=== PATIENT | female | born 1945 | race Caucasian/White ===

== ENCOUNTER → 2016-09-27 | Outpatient (CLI) | payer OTHER | LOC: HYPER 07:12 | DX: I83.012 Varicose veins of right lower extremity with ulcer of calf (principal); L97.211 Non-pressure chronic ulcer of right calf limited to breakdown of skin; M81.0 Age-related osteoporosis without current pathological fracture; E78.5 Hyperlipidemia, unspecified; Z85.528 Personal history of other malignant neoplasm of kidney; I12.9 Hypertensive chronic kidney disease with stage 1 through stage 4 chronic kidney disease, or unspecified chronic kidney disease; N18.9 Chronic kidney disease, unspecified; M19.90 Unspecified osteoarthritis, unspecified site; I48.91 Unspecified atrial fibrillation; Z87.891 Personal history of nicotine dependence; Z72.89 Other problems related to lifestyle ==

== ENCOUNTER → 2016-10-14 | Outpatient (CLI) | payer OTHER | LOC: HYPER 08:09 | DX: I87.2 Venous insufficiency (chronic) (peripheral) (principal); L97.811 Non-pressure chronic ulcer of other part of right lower leg limited to breakdown of skin; I87.8 Other specified disorders of veins; I86.8 Varicose veins of other specified sites; I83.10 Varicose veins of unspecified lower extremity with inflammation; M19.90 Unspecified osteoarthritis, unspecified site; M81.0 Age-related osteoporosis without current pathological fracture; R60.9 Edema, unspecified; E78.5 Hyperlipidemia, unspecified; I48.91 Unspecified atrial fibrillation; I12.9 Hypertensive chronic kidney disease with stage 1 through stage 4 chronic kidney disease, or unspecified chronic kidney disease; N18.9 Chronic kidney disease, unspecified; Z87.891 Personal history of nicotine dependence; Z72.89 Other problems related to lifestyle; Z85.528 Personal history of other malignant neoplasm of kidney ==

== ENCOUNTER 2017-05-03 14:13 | Inpatient (IN) | payer OTHER ==
[~2017-05-03] VITALS: Ht 160 cm; Wt 98.0 kg
--- NOTE | ~2017-05-03 | CATHLAB ---
[facility] [address] [place] [address] INVASIVE PROCEDURE REPORT Name: ANNA ESPAÑA Room #: 349-I [facility] IN ..#: [id number] Admission: 05/03/17 Attend Phys: Saud Riggins MD Discharge: 05/06/17 Date of : 47 Date of Service: 05/05/17 1253 Report #: [id number] THIS REPORT FOR: //name// CC: Everardo Riggins REASON FOR STUDY: Atrial fibrillation. PROCEDURE: The potential benefits and risks of the procedure were discussed at length with the patient who understood. Full written and informed consent was obtained. She then was sedated with intravenous Versed and fentanyl; 100 biphasic synchronous joules were applied to the chest with prompt conversion of atrial fibrillation to sinus rhythm. She remained in hemodynamically, electrically and neurologically stable condition following the procedure. SUMMARY: Successful cardioversion of atrial fibrillation to sinus rhythm with a single 100 joule biphasic shock. <ELECTRONICALLY SIGNED> By: Neil Connor MD, FACC 05/08/17 0906 1253 0143 Neil Connor MD, FACC /nt
--- NOTE | ~2017-05-03 | TEE ---
[facility] [address] [employer] [place] [address] TRANSESOPHAGEAL ECHOCARDIOGRAM Name: ANNA ESPAÑA Room #: 349-I [facility] IN .R.#: [id number] Admission: 05/03/17 Attend Phys: Saud Riggins MD Discharge: Date of : 47 Date of Service: 05/05/17 0856 Report #: [id number] THIS REPORT FOR: //name// APPROVED REPORT Study performed: 05/05/2017 07:35:20 EXAM: Comprehensive 2D, Doppler, and color-flow Echocardiogram Patient Location: [facility] Room #: 9 Status: routine BSA: 2.00 HR: 90 bpm BP: 111/64 mmHg Other Information Study Quality: Excellent Echo Enhancing Agent Indication: Rule out Shunt Agent(s) / Amount(s) Used: Agitated Saline 7 cc Procedure After obtaining informed consent, patient underwent transesophageal echo in the [employer]. Type of Sedation : Conscious Sedation Sedation was administered by Berenice Collier RN. Sedation start time: 814 Case end Time: 826 Sedation was achieved intravenously with: Versed (3 mg) Fentanyl (50mcg) Transesophageal probe was inserted and advanced into esophagus without difficulty by Neil Connor MD. Echo enhancement indication: R/O Septal defect. Echo enhancement agent administered: Agitated Saline The KRISTINA was performed without complications. Throughout the procedure, the blood pressure, pulse oximetry, cardiac rhythm, and rate were monitored. The patient tolerated the procedure without adverse effects. Recovery from conscious sedation was uneventful and vital signs were stable. Left Ventricle The left ventricle is normal size. Mild to moderate concentric left ventricular hypertrophy. Left ventricular systolic function is low [facility] [address] [place] [address] TRANSESOPHAGEAL ECHOCARDIOGRAM Name: ANNA ESPAÑA Room #: 349-I [facility] IN ..#: [id number] Admission: 05/03/17 Attend Phys: Saud Riggins MD Discharge: Date of : 47 Date of Service: 05/05/17 0856 Report #: [id number] normal. LVEF is 50%. Right Ventricle Right ventricle is dilated. The right ventricular systolic function is normal. Atria Left atrium is dilated. No clots in the left atrium or left atrial appendage. Interatrial septum is intact without evidence of ASD or PFO. Right atrium is dilated. Aortic Valve Aortic valve is mildly calcified, trileaflet. No aortic regurgitation is present. There is no aortic valvular stenosis. Mitral Valve The mitral valve is normal in structure. Moderate mitral regurgitation. No evidence of mitral valve stenosis. Tricuspid Valve The tricuspid valve is normal in structure. Mild tricuspid regurgitation. Pulmonic Valve The pulmonary valve is normal in structure. There is no pulmonic valvular regurgitation. Great Vessels The aortic root is normal in size. Moderate atherosclerosis in aorta. No aneurysm The ascending aorta is normal in size. Pericardium There is no pericardial effusion. <Conclusion> Left ventricular systolic function is low normal. LVEF is 50%. Both atria are dilated. No clots in the left atrium or left atrial appendage. Interatrial septum is intact without evidence of ASD or PFO. Aortic valve is mildly calcified, trileaflet. No aortic regurgitation or stenosis. The mitral valve is normal in structure. Moderate mitral regurgitation. [facility] [place] [address] [place] [address] TRANSESOPHAGEAL ECHOCARDIOGRAM Name: ANNA ESPAÑA Room #: 349-I [facility] IN [facility].#: [id number] Admission: 05/03/17 Attend Phys: Saud Riggins MD Discharge: Date of : 47 Date of Service: 05/05/17855 Report #: [id number] Moderate aortic atherosclerosis. No aneurysm There is no pericardial effusion. <ELECTRONICALLY SIGNED> By: Neil Connor MD, FACC 05/05/17855 5 5 Neil Connor MD, FACC /INF
--- NOTE | ~2017-05-03 | EKG ---
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 : 1945 Requested By: Neil Connor Order Number: [id number] MD: Neil Connor Measurements Intervals [place] Rate: 54 P: 50 ME: 186 QRS: 45 QRSD: 89 T: 50 QT: 455 QTc: 432 Interpretive Statements Sinus bradycardia Otherwise no significant abnormality Compared to ECG 05/03/2017 14:21:49 Atrial fibrillation no longer present Electronically Signed On 05-05-2017 9:08:31 REFORESTATION WORKER by Neil Connor [email or web address] <ELECTRONICALLY SIGNED> By: Neil Connor MD, [facility] 05/05/17 0908 6 Neil Connor MD, [facility] /EPI
--- NOTE | ~2017-05-03 | EKG ---
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
--- NOTE | ~2017-05-03 | HC ---
[facility] [place] [address] CONSULTATION Name: ANNA ESPAÑA Room #: 349-I [facility] IN ..#: [id number] Admission: 05/03/17 Attend Phys: Saud Riggins MD Discharge: 05/06/17 Date of : 47 Report #: [id number] THIS REPORT FOR: //name// CC: Everardo Riggins DATE OF SERVICE: 05/04/2017 WOUND CARE CONSULTATION NOTE REASON FOR CONSULTATION: Pressure ulcers of toes. HISTORY OF PRESENT ILLNESS: The patient is a 71-year-old woman admitted to [facility] for shortness of breath. She does have a history of deep vein thrombosis in the past and a history of renal cell carcinoma, status post left nephrectomy. The patient has been more short of breath over the past few days. Wound care team is consulted as it was noted she had some small areas of pressure injury of her toes. She does have a banking services officer who she sees. Electrocardiogram in the ER showed atrial fibrillation. ALLERGIES: AMOXICILLIN. MEDICATIONS: Include Wellbutrin, Tums, vitamin D, Flexeril, Pradaxa, Cardizem, Neurontin, glucosamine, Claritin, Lopressor, omega-3 fatty acids and vitamin K. PAST MEDICAL HISTORY: History of deep vein thrombosis, hypertension, renal cell carcinoma, osteoarthritis, hammertoe of the right foot, renal cell carcinoma status post left nephrectomy, history of aortic stenosis, peripheral arterial disease and depression. SOCIAL HISTORY: The patient used to smoke. She no longer does. REVIEW OF SYSTEMS: Noncontributory. PHYSICAL EXAMINATION: GENERAL: Shows alert, elderly female, pleasant and conversant. HEENT: Mucous membranes are moist. NECK: Supple. LUNGS: Respirations unlabored. HEART: Rate regular. ABDOMEN: Soft. EXTREMITIES: Exam of her feet shows a hammertoe of the right second toe. She has some slight dry eschar on the right second toe. There are also dry eschars of the left great toe at the distal interphalangeal joint and dry eschars of the distal phalanx of the left second and third toe. At the tip of the toe, there is a dry eschar. There are no open wounds whatsoever. These appeared to be [address] [address] CONSULTATION Name: ANNA ESPAÑA Room #: 349-I [facility] IN [facility].#: [id number] Admission: 05/03/17 Attend Phys: Saud Riggins MD Discharge: 05/06/17 Date of : 47 Report #: [id number] chronic from pressure or rubbing. There are no open wounds. No evidence of cellulitis. This is chronic. IMPRESSION: 1. Shortness of breath. 2. Symptomatic atrial fibrillation. The patient is to undergo cardioversion on 05/05. 3. History of renal cell carcinoma. 4. History of deep vein thrombosis. 5. History of peripheral arterial disease. 6. Hammertoe of the right foot. 7. Minor pressure ulcers with callus of the right second toe, left great toe and second and third toes. PLAN: The patient has a banking services officer who is on staff here at this hospital. Rather making a therapeutic recommendation, we will consult Podiatry for continued chronic care of her feet. There are no open wounds, requiring our care. We will sign off the case. <ELECTRONICALLY SIGNED> By: Young Newberry MD 05/09/17 1207 0706 0751 Young Newberry MD /nt
--- NOTE | ~2017-05-03 | 2DMMODE ---
[facility] [address] [place] [address] 2 D/M-MODE ECHOCARDIOGRAM Name: ANNA ESPAÑA Analia Room #: 349-I ADM IN ..#: [id number] Admission: 05/03/17 Attend Phys: Saud Riggins MD Discharge: Date of : 47 Date of Service: 05/04/17 1012 Report #: [id number] THIS REPORT FOR: //name// APPROVED REPORT Study performed: 05/04/2017 07:34:15 EXAM: Comprehensive 2D, Doppler, and color-flow Echocardiogram Patient Location: Bedside Room #: 349 Status: routine BSA: 2.01 HR: 80 bpm BP: 116/67 mmHg Rhythm: Atrial Fibrillation Other Information Study Quality: Technically Difficult Technically limited study due to body habitus. Indications Congestive Heart Failure Atrial Fibrillation Dyspnea 2D Dimensions RVDd: 40.64 mm LVEF(%): 44.79 (>50%) IVSd: 14.85 (7-11mm) LVOT Diam: 21.66 (18-24mm) LVDd: 39.90 mm PWd: 13.74 (7-11mm) LVDs: 31.17 (25-40mm) Aortic Root: 28.47 mm IVC: 29.00 mm Robles's LVEF: 44.79 % Volumes Left Atrial Volume (Systole) Single Plane 4CH: 122.26 mL Single Plane 2CH: 111.41 mL LA ESV Index: 64.00 mL/m2 Aortic Valve AoV Peak Vaughn.: 2.13 m/s AO Peak Gr.: 18.42 mmHg LVOT Max P.82 mmHg AO Mean Gr.: 8.37 mmHg LVOT Mean P.91 mmHg AO V2 Mean: 1.30 m/s LVOT Max V: 0.67 m/s [facility] [place] [address] 2 D/M-MODE ECHOCARDIOGRAM Name: TACOANNA K Room #: 349-I [facility] IN .R.#: [id number] Admission: 05/03/17 Attend Phys: Saud Riggins MD Discharge: Date of : 47 Date of Service: 05/04/17 1012 Report #: [id number] AO V2 VTI: 40.95 cm LVOT Mean V: 0.41 m/s IDANIA (VTI): 1.21 cm2 LVOT V1 VTI: 13.49 cm IDANIA Vmax: 1.16 cm2 SV (LVOT): 49.69 mL Mitral Valve MV Decel. Time: 196.35 ms MV E Max Vaughn.: 1.02 m/s Pulmonary Valve PV Peak Vaughn.: 0.58 m/s PV Peak Gr.: 1.33 mmHg Tricuspid Valve TR Peak Vaughn.: 2.72 m/s RAP Estimate: 10.00 mmHg TR Peak Gr.: 29.58 mmHg PA Pressure: 40.00 mmHg Left Ventricle The left ventricle is normal size. Mild to moderate concentric left ventricular hypertrophy. Left ventricular systolic function is low-normal. LVEF is 50%. This study is not technically sufficient to allow evaluation of the LV diastolic function due to atrial fibrillation. Right Ventricle Right ventricle is dilated. Atria Left atrium is severely dilated. Right atrium is dilated. Aortic Valve Aortic valve is calcified. No aortic regurgitation is present. There is mild to moderate valvular aortic stenosis. Calculated aortic valve area is 1.2 cm2 with maximum pressure gradient of 18 mmHg and mean pressure gradient of 8 mmHg. Mitral Valve Mitral valve leaflets are mildly thickened. Moderate mitral regurgitation. No evidence of mitral valve stenosis. Tricuspid Valve The tricuspid valve is normal in structure. Moderate to severe tricuspid regurgitation. PAP is estimated at 40 mmHg. Pulmonic Valve Pulmonic valve is not well visualized. [facility] [address] [place] [address] 2 D/M-MODE ECHOCARDIOGRAM Name: ANNA ESPAÑA Room #: 349-I [facility] IN [facility]#: [id number] Admission: 05/03/17 Attend Phys: Saud Riggins MD Discharge: Date of : 47 Date of Service: 05/04/17 1012 Report #: [id number] Great Vessels The aortic root is normal in size. Ascending aorta is not well visualized. IVC is dilated and collapses >50% with inspiration. Pericardium There is no pericardial effusion. <Conclusion> The left ventricle is normal size. Mild to moderate concentric left ventricular hypertrophy. Left ventricular systolic function is low-normal. Left atrium is severely dilated. Right atrium is dilated. There is mild to moderate valvular aortic stenosis. Moderate mitral regurgitation. Moderate to severe tricuspid regurgitation. PAP is estimated at 40 mmHg. There is no pericardial effusion. <ELECTRONICALLY SIGNED> By: Froilan Perez MD 05/04/17 1012 1012 1012 Froilan Perez MD /INF
[2017-05-03 14:24] VITALS: BP 131/78
[2017-05-03 15:09] LABS: ABSOLUTE NEUTROPHILS 6.6 thou/uL (1.4-8.2); BASOPHILS 0.6 % (0.0-2.0); EOSINOPHILS 2.2 % (0.0-3.0); HEMATOCRIT 36.3 % (37.0-47.0); HEMOGLOBIN 11.8 gm/dL (12.0-15.0); LYMPHOCYTES 15.2 % (24.0-44.0); MCHC 32.4 g/dL (28.0-37.0); MCV 89.7 fL (80.0-100.0); MONOCYTES 7.6 % (1.0-8.0); PLATELET COUNT 256 thou/uL (150-400); POLYS 74.4 % (36.0-66.0); RBC 4.05 mil/uL (4.20-5.00); RDW 14.9 % (10.5-14.5); WBC 8.9 thou/uL (4.0-11.0)
[2017-05-03 15:10] LABS: ANION GAP 12 mmol/L (7-16); BUN 33 mg/dL (7-18); CALCIUM 9.2 mg/dL (8.5-10.1); CHLORIDE 103 mmol/L (98-107); CO2 24 mmol/L (21-32); CREATININE 1.8 mg/dL (0.6-1.0); GLUCOSE 126 mg/dL (74-106); POTASSIUM 4.2 mmol/L (3.5-5.1); SODIUM 139 mmol/L (136-145)
[2017-05-03 15:18] LABS: MAGNESIUM 1.9 mg/dL (1.8-2.4); TROPONIN-I < 0.04 ng/mL (<0.06)
[2017-05-03 17:08] VITALS: BP 120/68
[2017-05-03 18:16] VITALS: BP 125/70
[2017-05-03] MEDS ORDERED: BIOTIN1 MG PO (19:07)
[2017-05-03] MEDS ORDERED: WELLBUTRIN XL300 MG PO (19:07)
[2017-05-03] MEDS ORDERED: TUMS PO (19:08)
[2017-05-03] MEDS ORDERED: VITAMIN D1000 UNI1 PO (19:08)
[2017-05-03] MEDS ORDERED: FLEXERIL PO (19:08)
[2017-05-03] MEDS ORDERED: CARDIZEM CD240 MG PO (19:09)
[2017-05-03] MEDS ORDERED: PRADAXA150 MG PO (19:09)
[2017-05-03] MEDS ORDERED: FERROUS GLUCON324 M2 PO (19:09)
[2017-05-03 19:10] VITALS: BP 127/87
[2017-05-03] MEDS ORDERED: GABAPENTIN 100100 MG PO (19:10)
[2017-05-03] MEDS ORDERED: GLUCOSAMINE &1 EACH PO (19:11)
[2017-05-03] MEDS ORDERED: CLARITIN10 MG PO (19:11)
[2017-05-03] MEDS ORDERED: LOPRESSOR100 M1 PO (19:12)
[2017-05-03] MEDS ORDERED: OMEGA-31000 M1 PO (19:12)
[2017-05-03] MEDS ORDERED: VITAMIN E400 UNIT PO (19:13)
[2017-05-03] MEDS ORDERED: VITAMIN B-12500 MCG PO (19:13)
[2017-05-03] MEDS ORDERED: VITAMIN K100 MCG PO (19:14)
[2017-05-03 23:50] VITALS: BP 128/87
[2017-05-04 04:21] LABS: HEMATOCRIT 34.8 % (37.0-47.0); HEMOGLOBIN 11.5 gm/dL (12.0-15.0); MCH 29.7 pg (26.0-34.0); RBC 3.87 mil/uL (4.20-5.00); RDW 15.2 % (10.5-14.5); WBC 8.3 thou/uL (4.0-11.0)
[2017-05-04 04:22] LABS: CALCIUM 8.8 mg/dL (8.5-10.1); CREATININE 1.7 mg/dL (0.6-1.0)
[2017-05-04 05:45] VITALS: BP 116/67
[2017-05-04 08:53] VITALS: BP 116/68
[2017-05-04 20:07] VITALS: BP 109/61
[2017-05-05 05:52] LABS: HEMATOCRIT 36.5 % (37.0-47.0); HEMOGLOBIN 11.8 gm/dL (12.0-15.0); MCH 29.6 pg (26.0-34.0); MCHC 32.3 g/dL (28.0-37.0); MCV 91.4 fL (80.0-100.0); RBC 3.99 mil/uL (4.20-5.00); RDW 15.4 % (10.5-14.5); WBC 8.5 thou/uL (4.0-11.0)
[2017-05-05 06:04] LABS: CALCIUM 9.4 mg/dL (8.5-10.1); CREATININE 1.7 mg/dL (0.6-1.0); POTASSIUM 4.5 mmol/L (3.5-5.1)
[2017-05-05 06:25] VITALS: BP 133/82
[2017-05-05 07:47] VITALS: BP 111/64
[2017-05-05] MEDS ORDERED: PACERONE 200 M200 M1 PO (08:58)
[2017-05-05] MEDS ORDERED: ATENOLOL 50MG T50 M1 PO (08:58)
[2017-05-05 12:29] VITALS: BP 116/38
[2017-05-05 16:10] VITALS: BP 120/60
[2017-05-05 18:58] VITALS: BP 133/67
[2017-05-06 00:13] VITALS: BP 120/71
[2017-05-06 03:40] VITALS: BP 122/68
[2017-05-06 08:40] VITALS: BP 141/83
[2017-05-06] MEDS ORDERED: LASIX 40 MG TAB40 M1 PO (10:56)
[2017-05-06 11:14] VITALS: BP 141/83
[2017-05-06 11:17] VITALS: BP 141/83
[2017-05-06] MEDS ORDERED: HYDROCODONE-AP1 EAC6 PO (11:52)
[2017-06-05] MEDS ORDERED: CARDIZEM CD240 MG PO (10:48)
== END 2017-05-06 12:38 | disposition home or self-care (01) | DRG 682 ==
LOC: ER 14:13 → EROBS 16:23 → 3W 16:23
PROVIDERS: Emergency Medicine; Hospitalist; Internal Medicine Cardiovascular Disease
PROC: 5A2204Z Restoration of Cardiac Rhythm, Single (ICD-10-PCS; principal; 2017-05-05)
PROC: B24BZZ4 Ultrasonography of Heart with Aorta, Transesophageal (ICD-10-PCS; principal; 2017-05-05)
DX: N17.9 Acute kidney failure, unspecified (principal); I50.31 Acute diastolic (congestive) heart failure; I11.0 Hypertensive heart disease with heart failure; I73.9 Peripheral vascular disease, unspecified; F32.9 Major depressive disorder, single episode, unspecified; E78.5 Hyperlipidemia, unspecified; M19.90 Unspecified osteoarthritis, unspecified site; E86.0 Dehydration; I48.0 Paroxysmal atrial fibrillation; I10 Essential (primary) hypertension; Z87.891 Personal history of nicotine dependence; Z86.718 Personal history of other venous thrombosis and embolism; Z90.5 Acquired absence of kidney; Z85.528 Personal history of other malignant neoplasm of kidney; Z88.1 Allergy status to other antibiotic agents
CPT/HCPCS: 10879

== ENCOUNTER → 2017-06-05 | Outpatient (CLI) | payer OTHER ==
[~2017-06-05] VITALS: Ht 157.5 cm; Wt 97.1 kg
[~2017-06-05] MED LIST: ATENOLOL 50MG T50 M1 PO; BIOTIN1 MG PO; CARDIZEM CD240 MG PO; CLARITIN10 MG PO; DUONEB 2.5-0.5 M3 ML INH; FERROUS GLUCON324 M2 PO; FLEXERIL PO; GABAPENTIN 100100 MG PO; GLUCOSAMINE &1 EACH PO; HYDROCODONE-AP1 EAC6 PO; LASIX 40 MG TAB40 M1 PO; LEVAQUIN 500 M500 M8 PO; LOPRESSOR100 M1 PO; OMEGA-31000 M1 PO; PACERONE 200 M200 M1 PO; PRADAXA150 MG PO; TUMS PO; VITAMIN B-12500 MCG PO; VITAMIN D1000 UNI1 PO; VITAMIN E400 UNIT PO; VITAMIN K100 MCG PO; WELLBUTRIN XL300 MG PO
--- NOTE | ~2017-06-05 | P ---
[facility] [address] [place] [address] PROCEDURE REPORT Name: ANNA ESPAÑA Room #: REG Mikaela Banuelos#: [id number] Admission: 06/05/17 Attend Phys: Leif Delarosa MD Discharge: Date of : 47 Report #: [id number] THIS REPORT FOR: //name// CC: Everardo Delarosa PREOPERATIVE DIAGNOSIS: Atrial fibrillation. POSTOPERATIVE DIAGNOSIS: Atrial fibrillation. DESCRIPTION OF PROCEDURE: The patient underwent informed consent. She was then sedated by the Anesthesiology Service and then underwent successful 200 joule synchronized cardioversion with roman catholic of sinus rhythm. CONCLUSIONS: Successful DC cardioversion with roman catholic of sinus rhythm. <ELECTRONICALLY SIGNED> By: Leif Delarosa MD 07/14/17 1408 1329 1931 Leif Delarosa MD /nt
[2017-06-05 10:28] VITALS: BP 133/80
== END | disposition home or self-care (01) ==
LOC: CATH 08:27
DX: I48.91 Unspecified atrial fibrillation (principal); I73.9 Peripheral vascular disease, unspecified; F32.9 Major depressive disorder, single episode, unspecified; Z88.8 Allergy status to other drugs, medicaments and biological substances; I11.0 Hypertensive heart disease with heart failure; I50.9 Heart failure, unspecified; E11.9 Type 2 diabetes mellitus without complications; Z82.49 Family history of ischemic heart disease and other diseases of the circulatory system; E66.9 Obesity, unspecified; Z87.891 Personal history of nicotine dependence
CPT/HCPCS: 62110; 62900

== ENCOUNTER 2017-07-10 07:04 | Observation (INO) | payer OTHER ==
[~2017-07-10] VITALS: Ht 162.6 cm; Wt 96.2 kg
--- NOTE | ~2017-07-10 | P ---
[facility] [place] [address] PROCEDURE REPORT Name: ANNA ESPAÑA Room #: 213-P [facility] MRona.#: [id number] Admission: 07/10/17 Attend Phys: Leif Delarosa MD Discharge: 07/11/17 Date of : 47 Report #: [id number] THIS REPORT FOR: //name// CC: Everardo Delarosa PREOPERATIVE DIAGNOSIS: Atrial fibrillation. POSTOPERATIVE DIAGNOSIS: Atrial fibrillation. HISTORY OF PRESENT ILLNESS: The patient is a 72-year-old with history of atrial fibrillation who has failed cardioversion and he is here for pacemaker, AV node ablation. ANESTHESIA: The patient underwent MAC anesthesia with no anesthesia related complications. DESCRIPTION OF PROCEDURE: The patient underwent informed consent. We discussed the details of the procedure including the risks, which include but not limited to bleeding, infection, vascular damage, cardiac perforation and pneumothorax as well. She understood these risks and is willing to proceed. The patient was brought to the EP laboratory in a fasting and unsedated state and prepped and draped in a sterile fashion. She received IV antibiotics prior to initiation of the procedure. A venogram was performed showing patency of the left axillary vein. Next, I injected lidocaine below the level of left clavicle. Incision was made. A pocket was created over the prepectoral fascia and access was obtained once to the left axillary vein using the extrathoracic approach. A sheath was positioned using the modified Seldinger technique. A lead was positioned to the right ventricular apex, which demonstrated adequate pacing and sensing thresholds. This was sutured to the prepectoral fascia using Ethibond. The pocket was irrigated and the device was connected and tested and found to be functioning normally. The pocket was closed in 3 layers using 2-0 for the deep layer, 3-0 for the mid layer, 4-0 for the subcuticular. Surgical glue was placed to the outer skin layer. Next, the patient's right groin was prepped in sterile fashion. I injected lidocaine to the right groin and obtained access to the right femoral vein x 1 and placed a SR0 sheath using modified Seldinger technique. An 8 mm ablation catheter was advanced into the right atrium and His signal was detected. Ablation was performed here. Heart block was not achieved at this site. I pulled back until there was more atrial signal and slightly lower than where the His signal was noted and ablation here resulted in progressive slowing of conduction until there was heart block and pacing. There was an underlying rhythm at around 40 beats per minute. We monitored for a period of 30 minutes and there was no return of conduction. As such, all catheters and sheaths were pulled and hemostasis was obtained. The patient awoke neurologically, hemodynamically intact. No complications and no significant bleeding. The implanted pacemaker was a [employer] model # [facility] [address] [place] [address] PROCEDURE REPORT Name: ANNA ESPAÑA Room #: 213-P [facility] Odell Banuelos#: [id number] Admission: 07/10/17 Attend Phys: Leif Delarosa MD Discharge: 07/11/17 Date of : 47 Report #: [id number], serial #[id number]. The RV lead was a [employer] model #2088TC, 58 cm, serial #[id number]. The RV lead demonstrated R-wave of 6.1 millivolts, pacing impedance of 650 ohms and a pacing threshold of 0.75 volts at 0.4 milliseconds. CONCLUSIONS: 1. Successful pacemaker implantation. 2. Satisfactory right ventricular pacing and sensing thresholds. 3. Successful AV node ablation. <ELECTRONICALLY SIGNED> By: Leif Delarosa MD 07/21/17 1513 1044 1222 Leif Delarosa MD /nt
[~2017-07-10 07:04] MED LIST changes: -DUONEB 2.5-0.5 M3 ML INH; -LEVAQUIN 500 M500 M8 PO
[2017-07-10 07:35] VITALS: BP 121/63
[2017-07-10 07:35] LABS: HEMATOCRIT 39.5 % (37.0-47.0); HEMOGLOBIN 12.9 gm/dL (12.0-15.0); MCH 30.1 pg (26.0-34.0); MCHC 32.6 g/dL (28.0-37.0); MCV 92.2 fL (80.0-100.0); RBC 4.29 mil/uL (4.20-5.00); RDW 15.4 % (10.5-14.5); WBC 7.4 thou/uL (4.0-11.0)
[2017-07-10 07:47] LABS: CALCIUM 9.6 mg/dL (8.5-10.1); CREATININE 1.6 mg/dL (0.6-1.0); POTASSIUM 4.8 mmol/L (3.5-5.1)
[2017-07-10 07:48] LABS: INR 1.1
[2017-07-10 20:11] VITALS: BP 123/77
[2017-07-10 23:04] VITALS: BP 122/70
[2017-07-11 03:45] VITALS: BP 138/81
[2017-07-11 07:20] VITALS: BP 132/74
[2017-07-11 10:14] VITALS: BP 132/74
== END 2017-07-11 11:47 | disposition home or self-care (01) ==
LOC: CATH 07:04 → 2N 19:48
PROVIDERS: Internal Medicine Cardiovascular Disease
DX: I48.1 Persistent atrial fibrillation (principal); E11.9 Type 2 diabetes mellitus without complications; I11.0 Hypertensive heart disease with heart failure; I50.9 Heart failure, unspecified; Z85.528 Personal history of other malignant neoplasm of kidney
CPT/HCPCS: 62110; 62900; 70005

== ENCOUNTER 2017-07-12 20:44 | Inpatient (IN) | payer OTHER ==
[~2017-07-12] VITALS: Ht 157.5 cm; Wt 98.9 kg
--- NOTE | ~2017-07-12 | HC ---
[facility] [place] [address] CONSULTATION Name: ANNA ESPAÑA Room #: 218-P ADM IN M.R.#: [id number] Admission: 07/12/17 Attend Phys: Mango Hebert MD Discharge: Date of : 47 Report #: [id number] THIS REPORT FOR: //name// CC: NO PCP Mango Hebert TYPE OF REPORT: Infectious diseases consultation. REASON FOR CONSULTATION: I was asked to evaluate concerning post permanent pacemaker fever. HISTORY OF PRESENT ILLNESS: The patient was a 72-year old with history of diabetes, hypertension, congestive heart failure, aortic stenosis and atrial fibrillation with rapid ventricular response that required AV node ablation and permanent pacemaker placement on 06/09/2017. There were no intra-procedure complications. She was later discharged and while at home failed to take her diuretic. She developed progressive shortness of breath and edema. In addition, she developed low-grade fever. She has had mild chills, headache and minimally productive cough. She returned to the Emergency Room and was hospitalized for further care. Temperature has been up to 100.2 degrees. She is on 2 liters of oxygen per nasal cannula. No pleuritic chest pain. Left chest incision has been without drainage. No nausea, vomiting or diarrhea. No dysuria or frequency. She has had some tenderness in her right groin following her procedure. No drainage from this area. No rash. She has been home with no other exposures. ALLERGIES: AMOXICILLIN and does not know if she tolerates CEPHALOSPORINS. MEDICATIONS: She was given vancomycin, Levaquin and aztreonam yesterday. Continues with Pradaxa, Tenormin, biotin, Tums, vitamin D, iron, Neurontin, glucosamine, Claritin, omega 3, vitamin B12 and vitamin E. PAST MEDICAL HISTORY: Hypertension, diabetes, congestive heart failure, peripheral vascular disease, atrial fibrillation, DVT, aortic stenosis, peripheral edema, left kidney cancer status post nephrectomy in April and depression. FAMILY HISTORY: Noncontributory. SOCIAL HISTORY: Past smoker. No significant alcohol intake. REVIEW OF SYSTEMS: As noted above with no additional features. PHYSICAL EXAMINATION: VITAL SIGNS: She was afebrile and hemodynamically stable. GENERAL: She was alert and cooperative. Moderately obese. SKIN: Unremarkable. [address] [address] CONSULTATION Name: ANNA ESPAÑA Room #: 218-P [facility] IN .R.#: [id number] Admission: 07/12/17 Attend Phys: Mango Hebert MD Discharge: Date of : 47 Report #: [id number] LYMPHATIC: Unremarkable. EXTREMITIES: Unremarkable. SKIN: Left chest incision well approximated with no fluctuance or erythema. Right groin access site was unremarkable. LUNGS: Few crackles heard in the posterior chest, mostly on the right side. No consolidation. HEART: Regular, without murmur, gallop or rub. ABDOMEN: Soft and nontender. No hepatosplenomegaly or mass. EXTREMITIES: Unremarkable. NEUROLOGICAL: Nonfocal. RADIOLOGICAL DATA: Chest x-ray, right upper lobe infiltrate. VQ scan, low probability. Blood cultures negative so far. LABORATORY DATA: Sodium 139, potassium 4, bicarbonate 27 and creatinine 1.4. Liver function test normal. Albumin at 3.2. BNP 7553. Hemoglobin 12.2 and white count 13.1. Differential remarkable for 81% neutrophils. Platelet count was 176,000. MRSA screen negative. ABGs on room air pO2 of 60, pCO2 of 28 and pH 7.49. IMPRESSION AND RECOMMENDATIONS: A 72-year old, postop day #3 from the left chest permanent pacemaker placement and atrioventricular ablation procedure. She has had low-grade fever associated with pulmonary edema and peripheral edema along with right upper lobe infiltrate. The patient has had nonproductive cough. May have had a component of aspiration or mucus plugging. Not a typical area for postoperative atelectasis. We would recommend continuing antibiotic coverage with Levaquin. We would like a repeat chest x-ray, PA and lateral, to further assess her infiltrate. Continue with diuresis. I do not think we are dealing with urinary tract or groin infection. We will also check urinalysis. I do not see any evidence of intravascular infection. <ELECTRONICALLY SIGNED> By: Yves Thomson MD 07/14/17 0919 31 0103 Yves Thomson MD /nt
--- NOTE | ~2017-07-12 | EKG ---
[address] [address] ELECTROCARDIOGRAM REPORT Name: ANNA ESPAÑA Room #: 218-P ADM IN M.R.#: [id number] Admission: 07/12/17 Attend Phys: Mango Hebert MD Discharge: Date of : 47 Report #: [id number] THIS REPORT FOR: //name// [facility] ED Test Date: 2017-07-12 Test Time: 20:54:51 Pat Name: ANNA ESPAÑA Department: Room: 218 Gender: F [employer] Supervisor: KAILEY : 1945 Requested By: Alcon Weems Order Number: [id number] MD: Neil Connor Measurements Intervals [place] Rate: 77 P: MA: QRS: 60 QRSD: 134 T: -35 QT: 392 QTc: 444 Interpretive Statements Afib/flut and V-paced complexes No further rhythm analysis attempted due to paced rhythm Right bundle branch block Compared to ECG 05/05/2017 08:57:31 atrial fibrillation with ventricular pacing is replaced sinus bradycardia Electronically Signed On 07-13-2017 8:34:27 CDT by Neil Connor [email or web address] <ELECTRONICALLY SIGNED> By: Neil Connor MD, [facility] 07/13/17 0834 53 53 Neil Connor MD, [facility] /EPI
--- NOTE | ~2017-07-12 | 2DMMODE ---
[facility] [place] [address] 2 D/M-MODE ECHOCARDIOGRAM Name: ANNA ESPAÑA Room #: 218-P ADM IN M.R.#: [id number] Admission: 07/12/17 Attend Phys: Mango Hebert MD Discharge: Date of : 47 Date of Service: 07/13/17 1027 Report #: [id number] THIS REPORT FOR: //name// APPROVED REPORT Study performed: 07/13/2017 09:42:01 EXAM: Limited 2D, Doppler, and color-flow Echocardiogram Patient Location: Echo lab Room #: 218 Status: routine BSA: 2.01 HR: 70 bpm BP: 114/65 mmHg Rhythm: NSR Other Information Study Quality: Adequate Indications Dyspnea Pacemaker Limited Echo to rule out pericardial effusion and LV function. Hx: AFIB, recent PPM, HTN, DM 2D Dimensions IVC: 24.00 mm Tricuspid Valve TR Peak Vaughn.: 3.72 m/s RAP Estimate: 10.00 mmHg TR Peak Gr.: 55.44 mmHg PA Pressure: 65.00 mmHg Left Ventricle The left ventricle is normal size. Mild concentric left ventricular hypertrophy. The left ventricular systolic function is normal. The left ventricular ejection fraction is within the normal range. LVEF is 55-60%. Right Ventricle The right ventricular systolic function is normal. Atria Left atrium is severely dilated. Right atrium is dilated. Pacemaker lead is present in the right atrium. [facility] [address] [address] 2 D/M-MODE ECHOCARDIOGRAM Name: ANNA ESPAÑA Room #: 218-P ADM IN M.R.#: [id number] Admission: 07/12/17 Attend Phys: Mango Hebert MD Discharge: Date of : 47 Date of Service: 07/13/17 1027 Report #: [id number] Aortic Valve Aortic valve is calcified. No aortic regurgitation is present. Mitral Valve Mitral valve leaflets are mildly thickened. Moderate mitral regurgitation. Tricuspid Valve The tricuspid valve is normal in structure. Moderate tricuspid regurgitation. Estimated PAP 65 mmHg. Great Vessels IVC is dilated and collapses >50% with inspiration. Pericardium There is no pericardial effusion. <Conclusion> The left ventricle is normal size. Mild concentric left ventricular hypertrophy. The left ventricular systolic function is normal. Left atrium is severely dilated. Right atrium is dilated. Pacemaker lead is present in the right atrium. Moderate mitral regurgitation. Moderate tricuspid regurgitation. Estimated PAP 65 mmHg. <ELECTRONICALLY SIGNED> By: Froilan Perez MD 07/13/177 26 1027 Froilan Perez MD /INF
[2017-07-12 21:19] VITALS: BP 150/81
[2017-07-12 21:49] LABS: ABSOLUTE NEUTROPHILS 10.8 thou/uL (1.4-8.2); BASOPHILS 0.4 % (0.0-2.0); EOSINOPHILS 0.2 % (0.0-3.0); HEMATOCRIT 37.6 % (37.0-47.0); HEMOGLOBIN 12.2 gm/dL (12.0-15.0); LYMPHOCYTES 8.7 % (24.0-44.0); MCH 29.9 pg (26.0-34.0); MCHC 32.4 g/dL (28.0-37.0); MCV 92.2 fL (80.0-100.0); MONOCYTES 8.8 % (1.0-8.0); PLATELET COUNT 192 thou/uL (150-400); POLYS 81.9 % (36.0-66.0); RBC 4.08 mil/uL (4.20-5.00); RDW 15.5 % (10.5-14.5); WBC 13.1 thou/uL (4.0-11.0)
[2017-07-12 21:57] LABS: CALCIUM 9.4 mg/dL (8.5-10.1); CREATININE 1.5 mg/dL (0.6-1.0); POTASSIUM 4.5 mmol/L (3.5-5.1)
[2017-07-12 22:00] LABS: BE(vivo) -0.7 mmol/L (-2 to +3); HCO3 21.6 mmol/L (22.0-26.0); PCO2 28.9 mmHg (35.0-45.0); PO2 60.3 mmHg (80.0-100.0); pH 7.492 (7.360-7.450); sO2 93.3 % (92.0-98.0)
[2017-07-12 22:07] LABS: ALBUMIN 3.2 g/dL (3.4-5.0); TOTAL BILIRUBIN 0.6 mg/dL (<0.1-1.0)
[2017-07-12 22:10] LABS: TROPONIN-I 0.73 ng/mL (<0.06)
[2017-07-12 23:31] VITALS: BP 152/81
[2017-07-12 23:59] LABS: LARGE PLATELETS OCCASIONAL
[2017-07-13 00:47] VITALS: BP 132/76
[2017-07-13 03:24] LABS: HEMATOCRIT 34.6 % (37.0-47.0); HEMOGLOBIN 11.4 gm/dL (12.0-15.0); MCHC 32.9 g/dL (28.0-37.0); MCV 91.1 fL (80.0-100.0); RBC 3.8 mil/uL (4.20-5.00); RDW 15.2 % (10.5-14.5); WBC 11.7 thou/uL (4.0-11.0)
[2017-07-13 03:40] LABS: CREATININE 1.4 mg/dL (0.6-1.0)
[2017-07-13 03:49] LABS: TROPONIN-I 0.67 ng/mL (<0.06)
[2017-07-13 04:45] VITALS: BP 124/69
[2017-07-13 07:48] VITALS: BP 114/65
[2017-07-13 11:44] VITALS: BP 126/74
[2017-07-13 19:50] VITALS: BP 120/85
[2017-07-13 23:31] LABS: URINE BILIRUBIN NEGATIVE (Negative); URINE BLOOD NEGATIVE (Negative); URINE CLARITY CLEAR; URINE COLOR YELLOW; URINE GLUCOSE-RANDOM* NEGATIVE (Negative); URINE KETONES NEGATIVE (Negative); URINE LEUKOCYTES-REFLEX NEGATIVE (Negative); URINE NITRITE-REFLEX NEGATIVE (Negative); URINE PROTEIN (DIPSTICK) NEGATIVE (Negative); URINE SPECIFIC GRAVITY <= 1.005 (1.005-1.035); URINE UROBILINOGEN 0.2 E.U./dl (0.2-1.0)
[2017-07-14 04:14] LABS: ABSOLUTE NEUTROPHILS 5.7 thou/uL (1.4-8.2); BASOPHILS 0.7 % (0.0-2.0); EOSINOPHILS 4.4 % (0.0-3.0); HEMATOCRIT 37.8 % (37.0-47.0); HEMOGLOBIN 12.6 gm/dL (12.0-15.0); LYMPHOCYTES 17.3 % (24.0-44.0); MCH 30.5 pg (26.0-34.0); MCHC 33.5 g/dL (28.0-37.0); MCV 90.9 fL (80.0-100.0); MONOCYTES 10.4 % (1.0-8.0); PLATELET COUNT 152 thou/uL (150-400); POLYS 67.2 % (36.0-66.0); RBC 4.15 mil/uL (4.20-5.00); RDW 15.5 % (10.5-14.5); WBC 8.4 thou/uL (4.0-11.0)
[2017-07-14 04:18] LABS: CALCIUM 9.5 mg/dL (8.5-10.1); CREATININE 1.7 mg/dL (0.6-1.0); POTASSIUM 3.9 mmol/L (3.5-5.1)
[2017-07-14 04:50] VITALS: BP 138/79
[2017-07-14 08:01] VITALS: BP 144/95
[2017-07-14 15:56] VITALS: BP 138/65
[2017-07-14 19:44] VITALS: BP 126/70
[2017-07-15 04:57] VITALS: BP 114/72
[2017-07-15 08:20] VITALS: BP 134/71
[2017-07-15 10:10] LABS: ABSOLUTE NEUTROPHILS 5.2 thou/uL (1.4-8.2); BASOPHILS 0.7 % (0.0-2.0); EOSINOPHILS 4.2 % (0.0-3.0); HEMATOCRIT 36.9 % (37.0-47.0); HEMOGLOBIN 12.1 gm/dL (12.0-15.0); LYMPHOCYTES 14.1 % (24.0-44.0); MCHC 32.9 g/dL (28.0-37.0); MONOCYTES 11.7 % (1.0-8.0); PLATELET COUNT 188 thou/uL (150-400); POLYS 69.3 % (36.0-66.0); RBC 4.06 mil/uL (4.20-5.00); RDW 15.1 % (10.5-14.5); WBC 7.4 thou/uL (4.0-11.0)
[2017-07-15 10:30] LABS: CALCIUM 9.7 mg/dL (8.5-10.1); CREATININE 1.6 mg/dL (0.6-1.0); POTASSIUM 4.5 mmol/L (3.5-5.1)
[2017-07-15 12:10] VITALS: BP 129/79
[2017-07-15] MEDS ORDERED: DUONEB 2.5-0.5 M3 ML INH (14:05)
[2017-07-15] MEDS ORDERED: LEVAQUIN 500 M500 M8 PO (14:05)
[2017-07-15 16:00] VITALS: BP 148/87
[2017-07-15] MEDS ORDERED: HYDROCODONE-AP1 EAC6 PO (17:33)
== END 2017-07-15 18:00 | disposition home health service (06) | DRG 177 ==
LOC: ER 20:44 → 2N 22:32 → EROBS 22:32 → 2N 23:28
PROVIDERS: Hospitalist; Nurse Practitioner Family; Physician Assistant; Specialist
DX: J15.6 Pneumonia due to other Gram-negative bacteria (principal); I50.33 Acute on chronic diastolic (congestive) heart failure; J96.01 Acute respiratory failure with hypoxia; N17.9 Acute kidney failure, unspecified; I13.0 Hypertensive heart and chronic kidney disease with heart failure and stage 1 through stage 4 chronic kidney disease, or unspecified chronic kidney disease; I48.91 Unspecified atrial fibrillation; E11.22 Type 2 diabetes mellitus with diabetic chronic kidney disease; F32.9 Major depressive disorder, single episode, unspecified; Z60.2 Problems related to living alone; M16.11 Unilateral primary osteoarthritis, right hip; E11.51 Type 2 diabetes mellitus with diabetic peripheral angiopathy without gangrene; N18.9 Chronic kidney disease, unspecified; Z86.718 Personal history of other venous thrombosis and embolism; Z88.1 Allergy status to other antibiotic agents; Z87.891 Personal history of nicotine dependence; Z90.5 Acquired absence of kidney; Z85.528 Personal history of other malignant neoplasm of kidney; Z95.0 Presence of cardiac pacemaker; Z79.899 Other long term (current) drug therapy
CPT/HCPCS: 10081